=== PATIENT | male | born 1950 | race African-American/Black ===

== ENCOUNTER 2021-10-20 16:57 | Inpatient (IN) | payer MEDICARE, BC ==
[~2021-10-20] VITALS: Ht 182.9 cm; Wt 93.5 kg
[2021-10-20 19:45] LABS: BASOPHILS % 0.3 % (0.0-2.0); EOSINOPHILS % 1.6 % (0.0-5.0); HEMATOCRIT. 34.6 % (42.0-52.0); HEMOGLOBIN. 11.5 g/dL (14.0-18.0); LYMPHOCYTES % 17.5 % (20.0-50.0); MEAN CORPUSCULAR HEMOGLOBIN 36.4 pg (28.0-32.0); MEAN CORPUSCULAR VOLUME 109.8 fL (80.0-94.0); MEAN PLATELET VOLUME 8.5 fl (7.4-10.4); NEUTROPHILS % 69.6 % (40.0-76.0); PLATELET 185 x1000/uL (130-400); RED BLOOD CELL COUNT 3.15 mill/uL (4.7-6.1)
[2021-10-20 19:54] LABS: CHLORIDE 108 mEq/L (98-107)
[2021-10-20] MEDS ORDERED: ASPIRIN 325MG EC TABLET PO ONE (21:00)
[2021-10-20] MEDS ORDERED: FUROSEMIDE 40MG/4ML VIAL IVP ONE (21:30)
[2021-10-21 01:36] LABS: CLARITY URINE CLEAR (CLEAR); COLOR URINE YELLOW (YELLOW); KETONES URINE NEGATIVE (NEGATIVE); LEUKOCYTE ESTERASE URINE 2+ (NEGATIVE); NITRITE URINE NEGATIVE (NEGATIVE); OCCULT BLOOD URINE 2+ (NEGATIVE); PROTEIN URINE NEGATIVE (NEGATIVE); SPECIFIC GRAVITY URINE 1.009 (1.005-1.030); UROBILINOGEN URINE 0.2 E.U./dL (0.2-1.0)
[2021-10-21] MEDS ORDERED: HYDROCODONE/ACETAMINOPHEN 5/325MG TABLET PO PRN (01:45)
[2021-10-21] MEDS ORDERED: ONDANSETRON HCL 4MG/2ML INJ IV PRN (01:45)
[2021-10-21] MEDS ORDERED: IPRATROPIUM/ALBUTEROL 0.5-3(2.5)MG/3ML NEB NEB PRN (01:45)
[2021-10-21] MEDS ORDERED: MAGNESIUM/ALUMINUM HYDROXIDE/SIMETHICONE 30ML UDC PO PRN (01:45)
[2021-10-21] MEDS ORDERED: DOCUSATE SODIUM 100MG CAPSULE PO PRN (01:45)
[2021-10-21] MEDS ORDERED: ACETAMINOPHEN 325MG TABLET PO PRN (01:45)
[2021-10-21] MEDS ORDERED: CLONIDINE 0.1MG TABLET PO PRN (01:45)
[2021-10-21] MEDS ORDERED: NALOXONE HCL 0.4MG/ML VIAL IV PRN (02:15)
[2021-10-21 03:32] LABS: BASOPHILS % 0.5 % (0.0-2.0); EOSINOPHILS % 2.5 % (0.0-5.0); HEMATOCRIT. 31.7 % (42.0-52.0); HEMOGLOBIN. 10.6 g/dL (14.0-18.0); LYMPHOCYTES % 19.6 % (20.0-50.0); MEAN CORPUSCULAR HEMOGLOBIN 36.7 pg (28.0-32.0); MEAN CORPUSCULAR VOLUME 109.3 fL (80.0-94.0); MEAN PLATELET VOLUME 8.1 fl (7.4-10.4); MONOCYTES % 11.1 % (2.0-8.0); NEUTROPHILS % 66.3 % (40.0-76.0); PLATELET 167 x1000/uL (130-400); RED CELL DISTRIBUTION WIDTH 14.7 % (11.6-14.6)
[2021-10-21 03:38] LABS: CHLORIDE 109 mEq/L (98-107)
[2021-10-21 03:47] LABS: LDL CHOLESTEROL 32 mg/dL (5-100)
[2021-10-21 03:48] LABS: CREATINE KINASE 301 IU/L (39-308); HDL CHOLESTEROL 63 mg/dL (40-59)
[2021-10-21 03:51] LABS: CREATINE KINASE MB FRACTION 8.6 ng/mL (0.5-3.6)
[2021-10-21 04:00] VITALS: BP 100/63
[2021-10-21 04:30] VITALS: BP 100/63
[2021-10-21 04:46] LABS: VITAMIN B12 SERUM 777 pg/mL (211-911)
[2021-10-21] MEDS ORDERED: LEVO50TA8 MT (04:48)
[2021-10-21] MEDS ORDERED: MULT-1146 MT (04:48)
[2021-10-21] MEDS ORDERED: BUME1TAB8 PO (04:48)
[2021-10-21] MEDS ORDERED: TAFA61CA PO (04:48)
[2021-10-21] MEDS ORDERED: POTA20TA82 MT (04:48)
[2021-10-21] MEDS ORDERED: HYDR-4001 PO (04:48)
[2021-10-21] MEDS ORDERED: FOLI-43 MT (04:48)
[2021-10-21] MEDS ORDERED: MIDO10TA PO (04:48)
[2021-10-21] MEDS ORDERED: BACL-141 MT (04:48)
[2021-10-21] MEDS: BACLOFEN 10MG TABLET PO SCH ×2 (04:51→17:21)
[2021-10-21 04:52] LABS: HEPATITIS B SURFACE ANTIGEN NEGATIVE
[2021-10-21] MEDS ORDERED: HEPARIN 5000 UNITS/ML VIAL SUBCUT SCH (06:00)
[2021-10-21] MEDS ORDERED: POTASSIUM CHLORIDE 20MEQ TABLET SR PO NR (07:30)
[2021-10-21] MEDS ORDERED: POTASSIUM CHLORIDE INJ 40 MEQ in DEXT 5% WATER 250 ML IV ONE (07:30)
[2021-10-21 08:00] VITALS: BP 93/61
[2021-10-21] MEDS: FUROSEMIDE 40MG/4ML VIAL IV SCH ×2 (08:56→17:21)
[2021-10-21] MEDS: FOLIC ACID 1MG TABLET PO SCH (08:57)
[2021-10-21] MEDS: THIAMINE HCL 100MG TABLET PO SCH (08:57)
[2021-10-21] MEDS: MULTIVITAMINS,THER W-MINERALS TABLET PO SCH (08:57)
[2021-10-21] MEDS ORDERED: ASPIRIN 81MG EC TABLET PO SCH (09:00)
[2021-10-21 09:45] LABS: *AMPHETAMINES SCREEN URINE NEGATIVE (NEGATIVE); *BARBITURATES SCREEN URINE NEGATIVE (NEGATIVE); *BENZODIAZEPINES SCREEN URINE NEGATIVE (NEGATIVE); *COCAINE SCREEN URINE NEGATIVE (NEGATIVE); CANNABINOID URINE SCREEN NEGATIVE (NEGATIVE); METHADONE URINE SCREEN NEGATIVE (NEGATIVE)
[2021-10-21 09:46] LABS: OPIATES URINE SCREEN PRESUMTIVE POSITIVE (NEGATIVE); PHENCYCLIDINE URINE SCREEN NEGATIVE (NEGATIVE)
[2021-10-21] MEDS ORDERED: CEFTRIAXONE 1 G PREMIX 50 ML IV SCH (10:15)
[2021-10-21 12:00] VITALS: BP_SYST 87; BP_SYST 92; BP_DIAS 53; BP_DIAS 56
[2021-10-21] MEDS: POTASSIUM CHLORIDE 20MEQ TABLET SR PO SCH (13:36)
[2021-10-21] MEDS: CEFTRIAXONE 1,000 MG in DEXTROSE 5% WATER 50 ML IV SCH (13:36)
[2021-10-21 16:00] VITALS: BP 104/64
[2021-10-21 16:09] LABS: CREATINE KINASE MB FRACTION 8.3 ng/mL (0.5-3.6)
[2021-10-21] MEDS: VYNDAMAX 61 MG PO SCH (17:20)
[2021-10-21] MEDS: APIXABAN 5 MG TABLET PO SCH (17:21)
[2021-10-21 20:00] VITALS: BP 115/79
[2021-10-22] VITALS: BP 103/59
[2021-10-22 04:00] VITALS: BP 99/65
[2021-10-22 08:00] VITALS: BP 118/67
[2021-10-22] MEDS: POTASSIUM CHLORIDE 20MEQ TABLET SR PO SCH (09:51)
[2021-10-22] MEDS: FUROSEMIDE 40MG/4ML VIAL IV SCH ×2 (09:52→17:12)
[2021-10-22] MEDS: FOLIC ACID 1MG TABLET PO SCH (09:52)
[2021-10-22] MEDS: MULTIVITAMINS,THER W-MINERALS TABLET PO SCH (09:52)
[2021-10-22] MEDS: THIAMINE HCL 100MG TABLET PO SCH (09:52)
[2021-10-22] MEDS: BACLOFEN 10MG TABLET PO SCH ×2 (09:52→17:12)
[2021-10-22] MEDS: APIXABAN 5 MG TABLET PO SCH ×2 (09:52→17:12)
[2021-10-22] MEDS: VYNDAMAX 61 MG PO SCH (09:55)
[2021-10-22] MEDS ORDERED: POTASSIUM CHLORIDE 20MEQ TABLET SR PO SCH (11:45)
[2021-10-22 12:00] VITALS: BP 102/72
[2021-10-22] MEDS: CEFTRIAXONE 1,000 MG in DEXTROSE 5% WATER 50 ML IV SCH (12:26)
[2021-10-22] MEDS ORDERED: LIDOCAINE HCL 2% JELLY 5ML MM NR (14:00)
[2021-10-22 16:00] VITALS: BP 134/79
[2021-10-22] MEDS: LEVOTHYROXINE SODIUM 75MCG TABLET PO SCH (16:07)
[2021-10-22 18:16] LABS: BASOPHILS % 0.5 % (0.0-2.0); EOSINOPHILS % 1.8 % (0.0-5.0); HEMATOCRIT. 34.5 % (42.0-52.0); HEMOGLOBIN. 11.5 g/dL (14.0-18.0); LYMPHOCYTES % 17.9 % (20.0-50.0); MEAN CORPUSCULAR HEMOGLOBIN 36.9 pg (28.0-32.0); MEAN CORPUSCULAR VOLUME 111.2 fL (80.0-94.0); MEAN PLATELET VOLUME 8.9 fl (7.4-10.4); MONOCYTES % 10.1 % (2.0-8.0); NEUTROPHILS % 69.7 % (40.0-76.0); PLATELET 158 x1000/uL (130-400); RED CELL DISTRIBUTION WIDTH 15.3 % (11.6-14.6)
[2021-10-22 19:26] LABS: PLATELET ESTIMATE NORMAL
[2021-10-22 20:00] VITALS: BP 101/66
[2021-10-23] VITALS (7 sets, daily range): BP systolic 90–125; BP diastolic 52–85
[2021-10-23 07:00] LABS: BASOPHILS % 0.4 % (0.0-2.0); EOSINOPHILS % 1.6 % (0.0-5.0); HEMATOCRIT. 34.6 % (42.0-52.0); HEMOGLOBIN. 11.7 g/dL (14.0-18.0); LYMPHOCYTES % 14.9 % (20.0-50.0); MEAN CORPUSCULAR HEMOGLOBIN 37.4 pg (28.0-32.0); MEAN CORPUSCULAR VOLUME 110.3 fL (80.0-94.0); MEAN PLATELET VOLUME 9.2 fl (7.4-10.4); MONOCYTES % 10.3 % (2.0-8.0); NEUTROPHILS % 72.8 % (40.0-76.0); PLATELET 161 x1000/uL (130-400); RED BLOOD CELL COUNT 3.14 mill/uL (4.7-6.1); RED CELL DISTRIBUTION WIDTH 14.8 % (11.6-14.6)
[2021-10-23] MEDS: LEVOTHYROXINE SODIUM 75MCG TABLET PO SCH (07:10)
[2021-10-23 08:00] LABS: CHLORIDE 109 mEq/L (98-107)
[2021-10-23] MEDS: FOLIC ACID 1MG TABLET PO SCH (09:17)
[2021-10-23] MEDS: THIAMINE HCL 100MG TABLET PO SCH (09:17)
[2021-10-23] MEDS: MULTIVITAMINS,THER W-MINERALS TABLET PO SCH (09:17)
[2021-10-23] MEDS: BACLOFEN 10MG TABLET PO SCH ×2 (09:17→16:42)
[2021-10-23] MEDS: POTASSIUM CHLORIDE 20MEQ TABLET SR PO SCH (09:17)
[2021-10-23] MEDS: APIXABAN 5 MG TABLET PO SCH ×2 (09:17→16:42)
[2021-10-23] MEDS: VYNDAMAX 61 MG PO SCH (09:18)
[2021-10-23] MEDS: CEFTRIAXONE 1,000 MG in DEXTROSE 5% WATER 50 ML IV SCH (11:03)
[2021-10-23] MEDS: FUROSEMIDE 40MG/4ML VIAL IV SCH ×2 (11:03→16:42)
[2021-10-23] MEDS ORDERED: APIX5TAB PO (12:27)
[2021-10-23] MEDS ORDERED: THIA100T72 PO (12:27)
[2021-10-24] VITALS: BP 110/75
[2021-10-24 04:00] VITALS: BP 113/70
[2021-10-24] MEDS: LEVOTHYROXINE SODIUM 75MCG TABLET PO SCH (07:03)
[2021-10-24 07:28] LABS: BASOPHILS % 0.4 % (0.0-2.0); EOSINOPHILS % 1.6 % (0.0-5.0); HEMATOCRIT. 34.3 % (42.0-52.0); HEMOGLOBIN. 11.5 g/dL (14.0-18.0); LYMPHOCYTES % 13.8 % (20.0-50.0); MEAN CORPUSCULAR HEMOGLOBIN 36.9 pg (28.0-32.0); MEAN CORPUSCULAR VOLUME 110.3 fL (80.0-94.0); MEAN PLATELET VOLUME 9.4 fl (7.4-10.4); MONOCYTES % 11.6 % (2.0-8.0); NEUTROPHILS % 72.6 % (40.0-76.0); PLATELET 155 x1000/uL (130-400); RED BLOOD CELL COUNT 3.11 mill/uL (4.7-6.1); RED CELL DISTRIBUTION WIDTH 14.9 % (11.6-14.6)
[2021-10-24 07:58] LABS: CHLORIDE 109 mEq/L (98-107)
[2021-10-24 08:00] VITALS: BP 126/78
[2021-10-24] MEDS: BACLOFEN 10MG TABLET PO SCH (09:37)
[2021-10-24] MEDS: MULTIVITAMINS,THER W-MINERALS TABLET PO SCH (09:37)
[2021-10-24] MEDS: FOLIC ACID 1MG TABLET PO SCH (09:37)
[2021-10-24] MEDS: THIAMINE HCL 100MG TABLET PO SCH (09:37)
[2021-10-24] MEDS: FUROSEMIDE 40MG/4ML VIAL IV SCH (09:37)
[2021-10-24] MEDS: APIXABAN 5 MG TABLET PO SCH (09:37)
[2021-10-24] MEDS: VYNDAMAX 61 MG PO SCH (09:38)
[2021-10-24 12:00] VITALS: BP 96/61
[2021-10-24] MEDS ORDERED: NITR-87 MT (12:56)
[2021-10-24] MEDS: POTASSIUM CHLORIDE 20MEQ TABLET SR PO SCH (13:27)
[2021-10-24] MEDS: CEFTRIAXONE 1,000 MG in DEXTROSE 5% WATER 50 ML IV SCH (13:27)
[2021-10-24 15:43] VITALS: BP 95/60
[2021-10-24 15:50] VITALS: BP 95/60
== END 2021-10-24 17:15 | disposition home health service (06) | DRG 189 ==
LOC: ER 16:57 → 7EST 21:38 → ENRESERV 10-21 02:30
PROVIDERS: ADMIT Internal Medicine; ATTEND Internal Medicine
DX: J96.90 Respiratory failure, unspecified, unspecified whether with hypoxia or hypercapnia (principal); G93.41 Metabolic encephalopathy; I31.3 Pericardial effusion (noninflammatory); I13.0 Hypertensive heart and chronic kidney disease with heart failure and stage 1 through stage 4 chronic kidney disease, or unspecified chronic kidney disease; E85.4 Organ-limited amyloidosis; N17.9 Acute kidney failure, unspecified; I48.20 Chronic atrial fibrillation, unspecified; N39.0 Urinary tract infection, site not specified; I50.30 Unspecified diastolic (congestive) heart failure; I43 Cardiomyopathy in diseases classified elsewhere; E46 Unspecified protein-calorie malnutrition; Z16.21 Resistance to vancomycin; E85.9 Amyloidosis, unspecified; R65.10 Systemic inflammatory response syndrome (SIRS) of non-infectious origin without acute organ dysfunction; R55 Syncope and collapse; D32.9 Benign neoplasm of meninges, unspecified; E03.9 Hypothyroidism, unspecified; E78.5 Hyperlipidemia, unspecified; E87.6 Hypokalemia; L89.156 Pressure-induced deep tissue damage of sacral region; I27.21 Secondary pulmonary arterial hypertension; R79.89 Other specified abnormal findings of blood chemistry; T83.038A Leakage of other urinary catheter, initial encounter; Y84.6 Urinary catheterization as the cause of abnormal reaction of the patient, or of later complication, without mention of misadventure at the time of the procedure; Y92.238 Other place in hospital as the place of occurrence of the external cause; I25.10 Atherosclerotic heart disease of native coronary artery without angina pectoris; N18.9 Chronic kidney disease, unspecified; I08.1 Rheumatic disorders of both mitral and tricuspid valves; Z79.01 Long term (current) use of anticoagulants; Z79.899 Other long term (current) drug therapy; Z68.28 Body mass index [BMI] 28.0-28.9, adult; I95.9 Hypotension, unspecified; B95.2 Enterococcus as the cause of diseases classified elsewhere
CPT/HCPCS: 36415; 71045; 80048; 80053; 80061; 80305; 81003; 82040; 82550; 82553; 82607; 82746; 83735; 83880; 84134; 84443; 84484; 85025; 85044; 86705; 86709; 86803; 87186; 87340; 93005; 93306; 97161; 99285; J0696; J1644; J1940; J7040; J7060; A4315